=== PATIENT | male | born 1995 | race African-American/Black ===

== ENCOUNTER 2016-08-14 | Emergency (ER) | payer MEDICAID ==
[~2016-08-14] VITALS: Ht 185.4 cm; Wt 100.0 kg
[~2016-08-14] MED LIST: MUPI2%T TOP
[2016-08-14 00:01] VITALS: BP 144/85; PULSE 72; RESP 16; TEMP 98.2; O2SAT 99
[2016-08-14] MEDS ORDERED: PERI0.126 SWISH-SPIT (01:19)
[2016-08-14] MEDS ORDERED: PENI500T PO (01:19)
[2016-08-14] MEDS ORDERED: IBUP800T23 PO (01:19)
--- NOTE | 2016-08-14 01:19 | PD ---
HPI Chief Complaint: Oral / Dental Pain or Problem Time Seen by Provider: :17 Travel History International Travel<30 days: No Contact w/Intl Traveler<30days: No Traveled to known affect area: No History of Present Illness HPI 21-year-old male presents to the emergency department for evaluation of tooth pain. Patient states that he had a cavity in his right mandibular third molar but it fell out approximately a week ago. States the pain has been worsening since. Rates it an 8 out of 10. It is radiating to his ear and down his neck. Denies any trauma. No fever or chills. No other symptoms to report. PFSH Past Medical History Medical History: Denies Significant Hx ?: Not Social History Alcohol Use: No Tobacco Use: No Substance Use: No Allergies-Medications (Allergen,Severity, Reaction): Coded Allergies: No Known Allergies (Unverified , 08/14/16) Reported Meds & Prescriptions Reported Meds & Active Scripts Active Ibuprofen 800 Mg Tab 800 Mg PO Q8H PRN Peridex Liq (Chlorhexidine Gluconate (Mouth) Liq) 0.12% Soln 15 Ml SWISH-SPIT BID 14 Days Penicillin V Potassium 500 Mg Tab 500 Mg PO Q6H 10 Days Bactroban 2% Cream (15gm) (Mupirocin) 15 Gm Cr 1 Applic TOP TID 7 Days APPLY TO AFFECTED AREA Review of Systems Except as stated in HPI: all other systems reviewed are Neg Physical Exam Narrative GENERAL: Well-nourished, well-developed patient in no acute distress SKIN: Warm and dry. HEAD: Normocephalic. No erythema or edema EYES: No scleral icterus. No injection or drainage. DENTAL: No loose or chipped teeth noted dental Meagan of the mandibular right third molar. Mild gingival erythema around it. No appreciable abscess. No malocclusion. NECK: Supple, trachea midline. No JVD or lymphadenopathy. CARDIOVASCULAR: Regular rate and rhythm without murmurs, gallops, or rubs. RESPIRATORY: Breath sounds equal bilaterally. No accessory muscle use. Data Data Last Documented VS Vital Signs Date Time Temp Pulse Resp B/P Pulse Ox O2 Delivery O2 Flow Rate FiO2 08/14/16 00:01 98.2 72 16 144/85 99 Orders Ketorolac Inj (Toradol Inj) (08/14/16 01:30) Amoxicillin (Trimox) (08/14/16 01:30) MDM Medical Decision Making Medical Screen Exam Complete: Yes Emergency Medical Condition: Yes Medical Record Reviewed: Yes Differential Diagnosis Dental caries versus dental abscess versus pulpitis versus periodontal disease versus gingivitis Narrative Course 21-year-old male presents to the emergency department for evaluation of tooth pain. Patient has noted dental caries in the mandibular right third molar. Patient will be started on oral antibiotics and provide a Peridex oral rinse. He is encouraged to follow-up with a dentist and return immediately with any acute worsening of symptoms. 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 Referrals: Dentist Patient Instructions: Dental Caries (ED), General Instructions Departure Forms: Tests/Procedures, Work Release Enter return to work date: Aug 16, 2016 Additional Instructions: Seek dental evaluation Follow-up the primary care provider Return immediately to the emergency department with any acute worsening of symptoms Med/Other Pt SpecificInfo: Prescription(s) given Scripts Ibuprofen 800 Mg [id number] Mg PO Q8H PRN (Pain/Inflammation) #30 TAB Ref 0 Prov:Rebeca Miranda 08/14/16 Chlorhexidine Gluconate (Mouth) Liq (Peridex Liq)0.12% Soln15 Ml SWISH-SPIT BID 14 Days Ref 0 Prov:Rebeca Miranda 08/14/16 Penicillin V Potassium 500 Mg [id number] Mg PO Q6H 10 Days Ref 0 Prov:Rebeca Miranda 08/14/16 Disposition: 01 DISCHARGE HOME Condition: Stable Rebeca Miranda Aug 14, 2016 01:19
[2016-08-14] MEDS ORDERED: KETOROLAC TROMETHAMINE 60 MG/2 ML (IM) VIAL IM ONE (01:30)
[2016-08-14] MEDS ORDERED: AMOXICILLIN (TRIHYDRATE) 500 MG CAP PO ONE (01:30)
== END 2016-08-14 01:40 | disposition home or self-care (01) ==
LOC: NEPB
DX: K02.9 Dental caries, unspecified (principal)
CPT/HCPCS: 96372; 99282; J1885

== ENCOUNTER 2017-05-14 09:24 | Emergency (ER) | payer MEDICAID ==
[~2017-05-14] VITALS: Ht 182.9 cm; Wt 90.0 kg
[~2017-05-14 09:24] MED LIST changes: +IBUP1TAB7 PO; +PENI500T PO; +PERI0.126 SWISH-SPIT
[2017-05-14 09:28] VITALS: BP 139/77; PULSE 66; RESP 18; TEMP 98.7; O2SAT 98
[2017-05-14] MEDS ORDERED: LIDOCAINE HCL 1% 50 ML VIAL XX ONE (10:15)
[2017-05-14] MEDS ORDERED: cefTRIAXone 250 MG VIAL IM ONE (10:15)
[2017-05-14] MEDS ORDERED: AZITHROMYCIN PWD FOR SUSP 1 GM PACKET PO ONE (10:15)
--- NOTE | 2017-05-14 10:28 | PD ---
HPI Chief Complaint: Possible sexually transmitted infection Time Seen by Provider: 10:08 Travel History International Travel<30 days: No Contact w/Intl Traveler<30days: No Traveled to known affect area: No History of Present Illness HPI Patient is a 22-year-old male here for evaluation of possible sexual infection. Patient has had clear penile discharge today. He is not sure if he has had it before. He denies pain or urinary problems. He is sexually active and has not always used condoms. He requests screening for STD. He denies genital pain , lesions, swelling, rashes. He has not been sick otherwise. There has been no fever, cough, congestion, vomiting, diarrhea, rashes, eye redness or drainage , change in appetite. History Past Medical History Medical History: Denies Significant Hx Immunizations Current: Yes Tetanus Vaccination: < 5 Years Past Surgical History Surgical History: No Previous Surgery Social History Attends: School (High school ) Tobacco Use in Home: No Alcohol Use: No Tobacco Use: No Substance Use: No Allergies-Medications (Allergen,Severity, Reaction): Coded Allergies: No Known Allergies (Verified Adverse Reaction, Unknown, 05/14/17) Reported Meds & Prescriptions Reported Meds & Active Scripts Active No Active Prescriptions or Reported Medications ROS Except as stated in HPI: all other systems reviewed are Neg Physical Exam Narrative GENERAL APPEARANCE: The patient is a well-developed, well-nourished child in no acute distress. He is pink, alert and speaking clearly. SKIN: Skin is warm and dry without rashes. There is good turgor. HEENT: Throat is clear without erythema, swelling or exudate. Uvula is midline. Mucous membranes are moist. Airway is patent. The pupils are equal, round and reactive to light. Extraocular motions are intact. No drainage or injection. Both tympanic membranes are without erythema, dullness or loss of landmarks. No perforation. No nasal congestion. NECK: Full range of motion without discomfort. LUNGS: Good air entry bilaterally with equal breath sounds without wheezes, rales or rhonchi. CHEST: The chest wall is without retractions or use of accessory muscles. HEART: Regular rate and rhythm without murmur. ABDOMEN: Soft, nondistended, nontender with positive active bowel sounds. EXTREMITIES: Full range of motion of all extremities is present. Capillary refill is less than 2 seconds. NEUROLOGIC: The patient is alert, aware and appropriately interactive with parent and with examiner. Cranial nerves 2 to 12 are grossly intact. Good tone. Data Data Last Documented VS Vital Signs Date Time Temp Pulse Resp B/P (MAP) Pulse Ox O2 Delivery O2 Flow Rate FiO2 05/14/17 11:21 05/14/17 09:28 98.7 66 18 98 Room Air Orders Orders Urinalysis - C+S If Indicated (05/14/17 09:49) Gc And Chlamydia Pcr (05/14/17 09:49) Azithromycin Powd Pack (Zithromax Powd P (05/14/17 10:15) Ceftriaxone Inj (Rocephin Inj) (05/14/17 10:15) Lidocaine 1% Inj (50 Ml) (Xylocaine 1% I (05/14/17 10:15) Ed Discharge Order (05/14/17 10:59) Labs Laboratory Tests Test 05/14/17 10:10 Urine Color YELLOW Urine Turbidity CLEAR Urine pH 7.0 Urine Specific [place] 1.028 Urine Protein TRACE mg/dL Urine Glucose (UA) NEG mg/dL Urine Ketones NEG mg/dL Urine Occult Blood NEG Urine Nitrite NEG Urine Bilirubin NEG Urine Urobilinogen LESS THAN 2.0 MG/DL Urine Leukocyte Esterase NEG Urine RBC 1 /hpf Urine WBC 1 /hpf Urine Mucus FEW /lpf Microscopic Urinalysis Comment CULT NOT INDICATED Chlamydia trachomatis DNA (PCR) NOT DETECTED Neisseria gonorrhoeae DNA (PCR) NOT DETECTED MDM Medical Decision Making Medical Screen Exam Complete: Yes Emergency Medical Condition: Yes Medical Record Reviewed: Yes (Last ED visit in our system was 08/14/16 for dental complaint.) Interpretation(s) UA is not suggestive of UTI. Urine PCR screening for gonorrhea and Chlamydia came back negative after patient was discharged. Differential Diagnosis Sexually transmitted infection, UTI, urethritis Narrative Course 22-year-old male with penile discharge raising concern for sexually transmitted infection most likely Chlamydia. Patient was empirically treated with Rocephin and Zithromax. He is well-appearing and well-hydrated. I told him I would call him with results of this ER testing. It subsequently came back negative for both chlamydia and gonorrhea. I called patient at 5:42 PM to inform him of the result. I reviewed with him importance of condom use. Patient cell phone number is [phone] Diagnosis Primary Impression: Sexually transmitted infection Referrals: Primary Care Physician 1 week Patient Instructions: General Instructions, Sexually Transmitted Diseases (ED) Departure Forms: School Release, Return to School Date: May 15, 2017 Tests/Procedures Additional Instructions: Condom use. Return to ER if worsening. Follow up with primary care doctor in 1 week. Med/Other Pt SpecificInfo: No Meds Exist/No RX given Scripts No Active Prescriptions or Reported Meds Disposition: 01 DISCHARGE HOME Condition: Stable Primary Care Physician No Primary Care Physician Hermelinda Johnson MD May 14, 2017 10:28
[2017-05-14 10:46] LABS: BLOOD, URINE NEG (NEG); GLUCOSE,URINE NEG (NEG); KETONE, URINE NEG (NEG); MUCUS URINE FEW /lpf (OCC); NITRITE,URINE NEG (NEG); URINE COLOR YELLOW (YELLW/STRAW)
[2017-05-14 10:48] LABS: COMMENT (UR) CULT NOT INDICATED; CULTURE IF INDICATED CULT NOT INDICATED
[2017-05-14 13:55] LABS: CHLAMYDIA PCR NOT DETECTED (NOT DETECT); NEISSERIA PCR NOT DETECTED (NOT DETECT)
== END 2017-05-14 11:25 | disposition home or self-care (01) ==
LOC: NEPA 09:24
DX: A64 Unspecified sexually transmitted disease (principal)
CPT/HCPCS: 81001; 87491; 87591; 96372; 99284; J0696

== ENCOUNTER 2017-06-28 00:07 | Emergency (ER) | payer MEDICAID ==
[~2017-06-28] VITALS: Ht 182.9 cm; Wt 99.5 kg
[2017-06-28 00:08] VITALS: BP 153/80; PULSE 87; RESP 16; TEMP 97.8; O2SAT 99
[2017-06-28] MEDS ORDERED: IBUPROFEN 600 MG TAB PO ONE (00:45)
--- NOTE | 2017-06-28 00:52 | PD ---
HPI Chief Complaint: Fall Time Seen by Provider: 00:45 Travel History International Travel<30 days: No Contact w/Intl Traveler<30days: No Traveled to known affect area: No History of Present Illness HPI 22-year-old black male presents to the department with complaints of right ankle pain after inversion injury at home exercising. He denies hearing or feeling a crack or pop. He's had difficulty in relating since then. Pain is moderate. Worse with weightbearing. Some relief with elevation. No other injury. PFSH Past Medical History Medical History: Denies Significant Hx Diminished Hearing: No Immunizations Current: Yes Tetanus Vaccination: > 5 Years Influenza Vaccination: No Past Surgical History Narrative Surgical Left femur fracture with ORIF Social History Alcohol Use: Yes (rare) Tobacco Use: Yes (once a week) Substance Use: No Allergies-Medications (Allergen,Severity, Reaction): Coded Allergies: No Known Allergies (Verified Adverse Reaction, Unknown, 06/28/17) Reported Meds & Prescriptions Reported Meds & Active Scripts Active No Active Prescriptions or Reported Medications Review of Systems General / Constitutional: No: Fever Eyes: No: Visual changes HENT: No: Headaches Cardiovascular: No: Chest Pain or Discomfort Respiratory: No: Shortness of Breath Gastrointestinal: No: Abdominal Pain Genitourinary: No: Dysuria Musculoskeletal: Positive: Limited ROM, Edema, Pain Skin: No Rash Neurologic: No: Weakness Psychiatric: No: Depression Endocrine: No: Polydipsia Hematologic/Lymphatic: No: Easy Bruising Physical Exam Narrative GENERAL: Well-developed, well-nourished in no acute distress. Nontoxic appearing. HEAD: Normocephalic, atraumatic. EYES: Pupils equal round and reactive. Extraocular motions intact. No scleral icterus. No injection or drainage. ENT: TMs clear without erythema. The external auditory canals clear. Nose: clear . Posterior pharynx is pink and moist. No tonsillar edema or exudate. Uvula midline. Airway patent. NECK: Trachea midline.Supple, nontender, moves head freely. No central bony tenderness or spasm. CARDIOVASCULAR: Regular rate and rhythm without murmurs, gallops, or rubs. RESPIRATORY: Clear to auscultation. Breath sounds equal bilaterally. No wheezes , rales, or rhonchi. GASTROINTESTINAL: Abdomen soft, non-tender, nondistended. No hepato-splenomegaly , or palpable masses. No guarding. EXTREMITIES: No clubbing, cyanosis. Examination of the right lower extremity reveals pain and swelling to the anterior talofibular ligament region. Mild discomfort over lateral malleolus. No pain in the medial malleolus, Achilles or heel. No forefoot or distal forefoot tenderness. No pain in the knee or hip. His intact sensation with good distal pulses. The left lower leg as well as her upper extremities are without localizing bony tenderness or deformity. BACK: Nontender without deformity or crepitance. No flank tenderness. Data Data Last Documented VS Vital Signs Date Time Temp Pulse Resp B/P (MAP) Pulse Ox O2 Delivery O2 Flow Rate FiO2 06/28/17 00:35 20 100 Room Air 06/28/17 00:08 97.8 87 153/80 (104) Orders Orders Ankle, Complete ([id number]) (06/28/17 ) Ice/Cold Pack (06/28/17 00:33) Ibuprofen (Motrin) (06/28/17 00:45) MDM Medical Decision Making Medical Screen Exam Complete: Yes Emergency Medical Condition: Yes Medical Record Reviewed: Yes Interpretation(s) Right ankle: Negative for acute fracture. Positive soft tissue swelling. Differential Diagnosis MDM: High Differential diagnoses: Fracture, sprain, strain, dislocation, contusion, neurovascular injury Narrative Course X-ray of the right ankle is negative for bony injury. Patient given Austyn wrap, crutches, ice pack. This of right ankle sprain Diagnosis Primary Impression: right ankle sprain Patient Instructions: General Instructions Departure Forms: Tests/Procedures, Work Release Special Instructions: No work 2 days. Additional Instructions: Rest. Elevation. Ice packs for the next 3 days. Austyn wrap and crutches. No weight-bearing and then progress to weight-bearing as tolerated. Medications as directed Follow-up with an orthopedist or your doctor in one week. Return to the ER if any problems Med/Other Pt SpecificInfo: Prescription(s) given Scripts No Active Prescriptions or Reported Meds Condition: Gustavo Zaragoza Jun 28, 2017 00:52
[2017-06-28] MEDS ORDERED: DICL75TA PO (00:54)
[2017-06-28] MEDS ORDERED: IBUPROFEN 800 MG TAB PO ONE (01:00)
--- NOTE | 2017-06-28 02:30 | RADRPT ---
EXAM DATE/TIME: 06/28/2017 01:14 [facility] COMPARISON: No previous studies available for comparison. INDICATIONS : Patient complains of right ankle pain after hitting ankle on brick last night. MEDICAL HISTORY : None. SURGICAL HISTORY : None. ENCOUNTER: Initial ACUITY: 2 days PAIN SCORE: 7/10 LOCATION: Right Ankle FINDINGS: Three view exam was performed of the right ankle. The bony structures are in normal alignment. No e vidence of fracture, dislocation, or soft tissue swelling. The ankle mortise is intact. No radiopaq ue foreign bodies are seen. Bony mineralization is normal. CONCLUSION: Unremarkable examination of the right ankle. Geoffrey Melendez MD on June 28, 2017 at 2:28 Board Certified Radiologist. This report was verified electronically.
== END 2017-06-28 01:28 | disposition home or self-care (01) ==
LOC: NEPD 00:07
DX: S93.401A Sprain of unspecified ligament of right ankle, initial encounter (principal); X50.9XXA Other and unspecified overexertion or strenuous movements or postures, initial encounter; Y93.B9 Activity, other involving muscle strengthening exercises; Y92.009 Unspecified place in unspecified non-institutional (private) residence as the place of occurrence of the external cause; Z72.0 Tobacco use
CPT/HCPCS: 73610; 99283; E0113